=== PATIENT | female | born 1965 | race Hispanic/Latino ===

== ENCOUNTER 2017-07-05 05:47 | Day surgery (SDC) | payer BC, MEDICAID ==
[2017-07-05] MEDS ORDERED: VANCOMYCIN/NS 1 GM/250 ML 1 GM/250 ML BAG IV SCH (06:32)
[2017-07-05] MEDS ORDERED: NACL BACTERIOSTATIC INFILTRATI ONE (06:43)
[2017-07-05] MEDS ORDERED: VANCOMYCIN/0.45 NS 1 GM/250 ML 1 GM/250 ML BAG IV SCH (06:45)
[2017-07-05] MEDS ORDERED: MARCAINE 0.5% 30 ML INFILTRATI ONE (06:47)
[2017-07-05] MEDS ORDERED: ANTIBIOTIC OINT TP ONE (06:47)
[2017-07-05] MEDS ORDERED: XYLOCAINE 1%/ EPI 1:100,000 INFILTRATI ONE (06:47)
[2017-07-05] MEDS ORDERED: BACITRACIN ONE (06:47)
[2017-07-05] MEDS ORDERED: NACL P/F VIAL (10 ML) 10 ML ONE (06:47)
[2017-07-05 07:05] LABS: Hematocrit 39.8 % (30.3-42.9); Hemoglobin 13.2 gm/dl (10.1-14.3); Mean Corpuscular HGB Conc 33 % (30-34); Mean Corpuscular Hemoglobin 29 pg (28-32); Mean Corpuscular Volume 87 fl (79-97); Platelet Count 236 K/mm3 (140-440); Red Blood Count 4.56 M/mm3 (3.65-5.03); Red Cell Distribution Width 15.4 % (13.2-15.2)
[2017-07-05] MEDS ORDERED: SUBLIMAZE ONE (07:12)
[2017-07-05] MEDS ORDERED: DIPRIVAN 10 MG/ML IV ONE (07:13)
[2017-07-05] MEDS ORDERED: NACL 0.9% 1000 ML 1,000 ML ONE (07:15)
--- NOTE | 2017-07-05 07:17 | Anesthesia Consultation ---
Anesthesia Consult and Med Hx - Airway Anesthetic Teeth Evaluation: Poor, Chipped ROM Head & Neck: Adequate Mental/Hyoid Distance: Adequate Mallampati Class: Class II Intubation Access Assessment: Good - Pulmonary Exam CTA: Yes - Cardiac Exam Cardiac Exam: RRR - Pre-Operative Health Status ASA Pre-Surgery Classification: ASA3 Proposed Anesthetic Plan: General - Pulmonary Hx Smoking: Yes (1 PPD X 30 YRS) COPD: Yes (INHALERS PRN) Hx Sleep Apnea: No (PETER PRE SCREEN HIGH RISK) - Cardiovascular System Hx Hypertension: No (ON CLONDINE FOR HOT FLASHES ONLY) - Central Nervous System Hx Back Pain: Yes (CHRONIC NECK AND BACK PAIN) - Other Systems Hx Cancer: No
[2017-07-05] MEDS ORDERED: ZOFRAN IV PRN (07:18)
--- NOTE | 2017-07-05 07:18 | Anesthesia Day of Surgery ---
Anesthesia Day of Surgery - Day of Surgery Patient Examined: Yes Patient H&P Reviewed: Yes Patient is NPO: Yes
[2017-07-05 07:33] LABS: BUN/Creatinine Ratio 12; Blood Urea Nitrogen 11 mg/dL (7-17); Calcium 8.6 mg/dL (8.4-10.2); Hemolysis Index 43
[2017-07-05] MEDS ORDERED: NACL 0.9% 1000 ML 1,000 ML IV SCH (08:00)
[2017-07-05] MEDS ORDERED: VERSED IV NR (08:00)
[2017-07-05] MEDS ORDERED: ePHEDrine SULFATE ONE (08:28)
[2017-07-05] MEDS ORDERED: BACITRACIN IR ONE (08:40)
[2017-07-05] MEDS ORDERED: NACL 0.9% IR ONE (08:41)
[2017-07-05] MEDS ORDERED: XYLOCAINE 1%/ EPI 1:100,000 IV ONE ×2 (08:41)
[2017-07-05] MEDS ORDERED: MARCAINE 0.5% INFILTRATI ONE ×3 (09:25)
[2017-07-05] MEDS ORDERED: NEO SYNEPHRINE ONE (09:43)
[2017-07-05] MEDS ORDERED: ZOFRAN ONE (09:43)
[2017-07-05] MEDS ORDERED: ZEMURON IV ONE (09:44)
[2017-07-05] MEDS ORDERED: DECADRON ONE (09:44)
[2017-07-05] MEDS ORDERED: XYLOCAINE MPF 2% ONE (09:44)
[2017-07-05] MEDS ORDERED: ROBINUL ONE (09:44)
[2017-07-05] MEDS ORDERED: NEOSTIGMINE ONE (09:45)
[2017-07-05] MEDS: DILAUDID IV PRN ×4 (11:26→12:00)
[2017-07-05] MEDS ORDERED: PERCOCET 5/325 PO PRN (11:48)
[2017-07-05] MEDS ORDERED: PERCOCET 5/325 ONE (11:50)
--- NOTE | 2017-07-05 12:12 | Operative Report ---
Operative Report Operative Report: Preoperative Diagnoses: 1. Chronic axial low back pain. 2. Bilateral Lumbar radiculopathy. 3. Postlaminectomy syndrome. 4. Degenerative disc disease of lumbar spine. Postoperative Diagnoses: 1. Chronic axial low back pain. 2. Bilateral Lumbar radiculopathy. 3. Postlaminectomy syndrome. 4. Degenerative disc disease of lumbar spine. Procedure: 1. Percutaneous insertion of dual octapolar epidural leads -thoracic spine. 2. Implantation of pulse generator/aircraft inspector. 3. Post operative programming of implanted neurostimulator -30 minutes. Surgeon: Farooq Salinas Used Equipment Sales Representative Surgeon: Reginald Bunch M.D. Anesthesia: General endotracheal. Estimated blood loss: 15 mL Complications: None. Indication: The patient is a 51-year-old female has a history of chronic axial low back pain secondary to postlaminectomy syndrome and degenerative disc disease with bilateral lower extremity radiculopathy. She has undergone extensive conservative management including chronic opioid therapy. She was evaluated by neurosurgery and was determined to not be a candidate for any further lumbar surgical intervention. She underwent neurostimulator trial with greater than 75% pain relief and reduction in opioid intake. Based on the success of the trial, she was felt to be an excellent candidate for neurostimulator implantation. The patient has undergone psychological evaluation and no contraindication to neuromodulation therapy was identified. She now presents for permanent implantation. Procedure: Upon informed consent, the patient was brought to the operative suite and period general endotracheal anesthesia was induced. The patient was then carefully turned onto the operative table in the prone position. All pressure points were meticulously padded. She received 600 mg clindamycin intravenously for antibiotic prophylaxis. The back was sterilely prepped and draped in routine fashion. Attention was initially turned to the thoracolumbar junction. Using a 14-gauge Tuohy needle, the needle was advanced to the interlaminar space on the left at T12-L1. The epidural space was entered using [id number] technique. Aspiration was negative for blood and CSF. Guidewire was easily passed into the dorsal epidural space. This was followed by placement of a 60 cm octapolar (8 contact) lead ([employer], [id number] ) which was guided by Dr. Bunch using fluoroscopic assistance into the lower thoracic space to the left of midline with the superior contact overlying the superior T7 endplate. Using parallel technique, the second epidural lead was also advanced into the posterior epidural space at T12-L1 and a second 60 cm octapolar lead ([employer] [id number]), and advanced by Dr. Bunch to the level of the superior endplate of T7, to the right of midline. Once placement was deemed to be satisfactory in both AP and lateral projections , a 6 cm paramedian skin incision was made with a #15 blade after installation of 2% lidocaine with epinephrine. Using sharp and blunt dissection was electrocautery, the dorsal lumbar fascia was identified. The fat tissue connective tissue was stripped off the dorsal fascia. The Tuohy needles were removed and Woods-Lock anchors were used to anchor the leads to the dorsal epidural fascia with 2-0 silk sutures. The leads were locked into the anchors and the leads appear to be secure. Lead position was again confirmed with fluoroscopy. The incision was irrigated with bacitracin-containing solution. Second 4 cm incision was made a #15 blade over the right lower flank, superior to the iliac crest. Using sharp and blunt dissection, a pocket was created within the subcutaneous fat. Hemostasis was achieved with electrocautery. The pocket was irrigated in no active bleeding was identified. The tunneling device was then inserted and the leads were passed from the paramedian incision to the pocket and connected to the IPG ([employer] [address] [employer] SN [id number]). Impedance was found to be satisfactory. The pulse generator was then placed into the pocket satisfactory fit. The wound was again irrigated with antibiotic containing solution. The paramedian incision was closed in 3 layers with deep 0 Vicryl interrupted sutures, subcutaneous 3-0 Vicryl interrupted sutures and skin edges were approximated with stainless steel javier. The right flank incision was closed in 2 layers with 0 Vicryl deep sutures and skin edges were approximated with stainless steel javier. Sterile dressings were applied. Patient was then turned onto the gurney in the supine position and extubated. She was taken to the recovery room where she was noted to be in stable cardiopulmonary and neurologic condition. In the recovery room 30 minutes were spent programming the neurostimulator system. The pulse generator/aircraft inspector was activated and programmed including frequency, pulse width, pulse amplitude and pulse duration. Impedance was get down to be satisfactory. Patient was provided with 3 programs for initial use. Disposition: Patient was discharged to home in good condition. Follow up with home health care. Prescription was given for Clindamycin 300 mg 3 times a day twice a day for 3 days. Follow-up: Return to clinic in one week for follow-up evaluation.
[2017-07-05 13:06] VITALS: BP 116/67
--- NOTE | 2017-07-05 17:39 | Post Anesthesia Evaluation ---
- Post Anesthesia Evaluation Patient Participated: Yes Airway Patent: Yes Stable Respiratory Function: Yes Nausea/Vomiting: No Temp > 96.8F: Yes Pain Manageable: Yes Adequeate Hydration: Yes Anesthesia Complications: No
--- NOTE | 2017-07-06 00:54 | XRay Report ---
FINAL REPORT EXAM: XR T SPINE CLINICAL INDICATIONS: RADICULOPATHY/POST LAMINECTOMY SYNDROME FINDINGS: Two digital spot radiographs were acquired and demonstrate placement of a spinal pain device, with leads terminating superiorly at the level of T6-T7. IMPRESSION: FLUOROSCOPY PROVIDED FOR SPINAL PAIN DEVICE PLACEMENT
== END 2017-07-05 13:30 | disposition home or self-care (01) ==
LOC: OR 05:47
PROVIDERS: ATTEND Radiology Diagnostic Radiology
DX: M51.16 Intervertebral disc disorders with radiculopathy, lumbar region (principal); M96.1 Postlaminectomy syndrome, not elsewhere classified; M54.2 Cervicalgia; G89.29 Other chronic pain; J44.9 Chronic obstructive pulmonary disease, unspecified; F17.210 Nicotine dependence, cigarettes, uncomplicated; Z88.2 Allergy status to sulfonamides; Z88.5 Allergy status to narcotic agent; Z91.048 Other nonmedicinal substance allergy status
CPT/HCPCS: 36415; 63650; 63685; 72070; 80048; 85027; 86140; C1767; C1778; J1100; J1170; J2370; J2405; J2704; J2710; J3010; J3370; J7030